=== PATIENT | male | born 1930 | race Caucasian/White ===

== ENCOUNTER 2017-12-09 09:07 | Outpatient (CLI) | payer MEDICARE ==
--- NOTE | 2017-12-09 12:27 | PET ---
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 Exam requ ested for initial staging. TECHNIQUE: PET scanning with CT attenuation correction was performed from the base of the brain through the prox imal thighs following the intravenous administration of 11 mCi F18-FDG in the right antecubital fossa . Imaging was performed after an uptake interval of 51 minutes. COMPARISON: None. CORRELATION: None. FINDINGS: Multiple areas of marimar hypermetabolism are seen, including the left supraclavicular (SUV 6), mediast inum (SUV 7.4 in prevascular space), periaortic abdominal (SUV 3.7), left common iliac (SUV 3.5), and left external iliac (SUV 4.6) lymph nodes. There is a focus of increased FDG localization in the inferior aspect of the left thyroid gland with a SUV of 3.5. No hypermetabolic pulmonary lung nodules, liver, adrenal, or skeletal lesions are seen. The CT scan used for attenuation correction demonstrates no evidence of pleural effusions or ascites. There is physiologic activity in the GI and tracts. IMPRESSION: 1. 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 2. Hypermetabolic left thyroid nodule should be evaluated with thyroid ultrasound and biopsy if nece ssary. POS: MATT
== END 2017-12-09 09:08 | disposition home or self-care (01) ==
LOC: PET 09:07
PROVIDERS: ATTEND Radiology Radiation Oncology
DX: C67.9 Malignant neoplasm of bladder, unspecified (principal); C77.8 Secondary and unspecified malignant neoplasm of lymph nodes of multiple regions
CPT/HCPCS: 78815; A9552

== ENCOUNTER 2018-03-02 12:54 | Outpatient (CLI) | payer MEDICARE ==
--- NOTE | 2018-03-03 11:20 | PET ---
RADIONUCLIDE PET SCAN WITH CT ATTENUATION CORRECTION IMAGING: Date: 03/02/18 HISTORY: Urinary bladder cancer with metastatic disease. COMPARISON: 12/09/17. FINDINGS: Physiologic uptake of radiotracer is present throughout the enteric system and along each urinary tra ct. Focal areas of uptake involving the left forearm are related to injection. Previously demonstrated areas of hypermetabolic activity associated with lymph nodes throughout the t orso and retroperitoneum are not apparent on today's exam. No hypermetabolic adenopathy is visible. Uptake at the inferior pole left thyroid lobe now shows a maximum SUV of 2.7 (previously 3.5). No new areas of hypermetabolic activity are apparent. Nondiagnostic CT attenuation correction images show prominent calcification throughout the arterial s tructures. There are degenerative changes of the lumbar spine. Girard catheter decompresses the bladde r. There is fusiform ectasia of the lower abdominal aorta. Diverticula arise from the colon. IMPRESSION: 1. Complete response with interval resolution of hypermetabolic lymph nodes. No new abnormalities ar e apparent. 2. Slight interval decrease in intensity of activity associated with the inferior pole of left thyro id lobe. POS: SANDOVAL
== END 2018-03-02 12:55 | disposition home or self-care (01) ==
LOC: PET 12:54
PROVIDERS: ATTEND Internal Medicine Medical Oncology
DX: C67.9 Malignant neoplasm of bladder, unspecified (principal); E07.89 Other specified disorders of thyroid
CPT/HCPCS: 78815; A9552

== ENCOUNTER 2018-06-08 08:00 | Outpatient (CLI) | payer MEDICARE ==
--- NOTE | 2018-06-08 11:16 | PET ---
RADIONUCLIDE PET SCAN WITH CT ATTENUATION CORRECTION: HISTORY: Urinary bladder cancer. Restaging. COMPARISON: 03/02/2018 and 06/08/2018 FINDINGS: Physiologic uptake of radiotracer is present throughout the enteric system and along each urinary tra ct. No abnormal uptake is associated with supraclavicular lymph nodes in the area of abnormality on prior exams. Uptake at the inferior pole, left thyroid lobe, now shows a maximum SUV of 3.2 (previously 2.7). Nondiagnostic CT attenuation correction images again show prominent calcification throughout the naila rial structures. Projecting inferiorly from the thyroid isthmus, a peripherally calcified lesion is 2.6 cm in greatest diameter and is more inferior and midline than the area of increased uptake on the PET scan. IMPRESSION: 1. No evidence of metastatic disease or new abnormalities. 2. Uptake associated with inferior pole, left thyroid lobe, has increased slightly, to a maximum sta ndardized uptake value of 3.2. Please consider thyroid sonogram to evaluate for potential lesion at the inferior pole, left thyroid lobe. On PET scan, it appears separate from the peripherally calcifi ed lesion at the inferior margin of the thymus, which is not hypermetabolic. POS: MATT
== END 2018-06-08 08:01 | disposition home or self-care (01) ==
LOC: PET 08:00
PROVIDERS: ATTEND Internal Medicine Hematology & Oncology
DX: C67.9 Malignant neoplasm of bladder, unspecified (principal); E32.9 Disease of thymus, unspecified; R94.6 Abnormal results of thyroid function studies
CPT/HCPCS: 78815; A9552

== ENCOUNTER 2018-10-12 07:27 | Outpatient (CLI) | payer MEDICARE ==
--- NOTE | 2018-10-12 12:00 | PET ---
NUCLEAR MEDICINE FDG PET CT: (Positron Emission Tomography) DATE: 10/12/18 HISTORY: 88-year-old male with bladder cancer C67.5 restaging. COMPARISON: 06/08/18. TECHNIQUE: IV injection F-18 Fluorodeoxyglucose (FDG) dose: 11.9 mCi PET and attenuation-correction CT performed from skull base to proximal thighs. FINDINGS: SUV (standard uptake value) numbers given are QCLR maximum SUV's: The previously mentioned focus of increased uptake at the lower pole of the left lobe of the thyroid gland with previous SUV of 3.2, now has SUV of 4.5. This is not to be confused from the separate midl ine, round, approximately 2.5 cm, rim-calcified benign, nonhypermetabolic nodule in the upper mediast inum directly posterior to the manubrium of the sternum. No abnormally hypermetabolic lesions are katelynn ntified in the chest or abdomen. In the pelvis, there is very high uptake in the urine contents of th e urinary bladder, with blooming which would completely overwhelm any tumor activity in the urinary b ladder that may be present. This is similar to the previous study. No evidence of iliac chain lymphad enopathy. IMPRESSION: 1. No evidence of metastatic disease. 2. In general, the urinary bladder cannot be evaluated for residual or recurrent neoplasm on PET sca n. 3. Hypermetabolic nodule at the lower pole of the left lobe of the thyroid gland, slightly more hype rmetabolic than previously. This is nonspecific. DEJAN Martell POS: MATT
== END 2018-10-12 07:28 | disposition home or self-care (01) ==
LOC: PET 07:27
PROVIDERS: ATTEND Internal Medicine Hematology & Oncology
DX: C67.9 Malignant neoplasm of bladder, unspecified (principal); E04.1 Nontoxic single thyroid nodule
CPT/HCPCS: 78815; A9552

== ENCOUNTER 2019-04-13 07:30 | Outpatient (CLI) | payer MEDICARE ==
--- NOTE | 2019-04-13 14:13 | PET ---
PET CT SKULL TO MID THIGH: COMPARISON: Most recent PET CT from 10/12/2018 is referenced for comparison purposes. HISTORY: Bladder malignancy. TECHNIQUE: A PET CT was performed from the skull to the mid thigh, after the administration of 13 millicuries of F18 FDG. Evaluation was performed on a [employer] workstation. FINDINGS: NECK: Redemonstration of mildly increased metabolic activity localizing to the lower pole left thyro id lobe, currently 3.2 SUV, which has reduced from comparison exam. Peripherally calcified inferior thyroid lesion by CT imaging is redemonstrated and does appear separate from the metabolic a ctivity. CHEST: No areas of hypermetabolic activity ABDOMEN/PELVIS: No new hypermetabolic lesion. There is wall thickening of the urinary bladder, and extensive urinary artifact within the urinary bladder does limit evaluation otherwise. SKELETON: No areas of hypermetabolic activity. CT images used for attenuation correction show no significant interval detrimental change by noncontr ast CT appearance. IMPRESSION: 1. No evidence of new hypermetabolic disease. 2. Interval reduction in SUV of activity localizing to the lower pole left thyroid lobe. 3. Otherwise grossly stable exam. Transcribed Date/Time: 04/13/2019 2:19 PM
== END 2019-04-13 07:31 | disposition home or self-care (01) ==
LOC: PET 07:30
PROVIDERS: ATTEND Internal Medicine Hematology & Oncology
DX: C67.9 Malignant neoplasm of bladder, unspecified (principal)
CPT/HCPCS: 78815; A9552

== ENCOUNTER 2019-10-12 07:24 | Outpatient (CLI) | payer MEDICARE ==
--- NOTE | 2019-10-12 11:35 | PET ---
PET CT: HISTORY: An 89-year-old male with bladder cancer. Last chemotherapy on 05/25/2018. Exam was requested for rest aging. COMPARISON: PET CT of 04/13/2019 TECHNIQUE: PET scanning with CT attenuation correction was performed from the base of the brain through the prox imal thighs following the intravenous administration of 13 millicuries of F18 fluorodeoxyglucose in t he right antecubital fossa. FINDINGS: Focally increased uptake in the lower pole of the left thyroid lobe is again seen with an SUV of 4.4 (previously 3.2). No marimar hypermetabolism is seen in the neck, chest, axillae, abdomen or pelvis. No hypermetabolic pu lmonary nodules or liver, adrenal or skeletal lesions are seen. There is physiologic activity in the GI and tracts and in the visualized portions of the brain. CT scan used for attenuation correction demonstrates no evidence of pleural effusions or ascites. IMPRESSION: 1. No evidence of metastatic disease. 2. Hypermetabolic thyroid lesion should be evaluated with ultrasound. POS: MATT
== END 2019-10-12 07:25 | disposition home or self-care (01) ==
LOC: PET 07:24
PROVIDERS: ATTEND Internal Medicine Hematology & Oncology
DX: C67.9 Malignant neoplasm of bladder, unspecified (principal); E07.89 Other specified disorders of thyroid
CPT/HCPCS: 78815; A9552

== ENCOUNTER 2020-08-14 07:29 | Outpatient (CLI) | payer MEDICARE ==
--- NOTE | 2020-08-14 09:16 | PET ---
EXAM: PET/CT HISTORY: Malignant neoplasm of the bladder neck; restaging evaluation TECHNIQUE: PET scanning with CT attenuation correction was performed from the base of the brain to the proximal thighs following the intravenous administration of 11.6 millicuries [id number]. COMPARISON: Prior PET/CT dated October 12, 2019. FINDINGS: Biodistribution:The biodistribution for the exam appears acceptable. Head and neck: There is appropriate background activity within the brain. No hypermetabolic lymphaden opathy or masses identified. Thorax: No hypermetabolic pulmonary lesion, pleural effusion or lymphadenopathy is present. Abdomen and pelvis: There is expected background activity within the GI and systems. No hypermetab olic mass, lymphadenopathy or ascites is present. Osseous structures and skin: No hypermetabolic skin or osseous lesion is identified. IMPRESSION: Normal PET scan. No evidence to suggest recurrent malignancy or metastatic disease.
== END 2020-08-14 07:30 | disposition home or self-care (01) ==
LOC: PET 07:29
PROVIDERS: ATTEND Internal Medicine Hematology & Oncology
DX: C67.5 Malignant neoplasm of bladder neck (principal)
CPT/HCPCS: 78815; A9552

== ENCOUNTER 2021-09-01 07:35 | Outpatient (CLI) | payer MEDICARE | END 2021-09-01 07:36 | disposition home or self-care (01) | LOC: PET 07:35 | PROVIDERS: ATTEND Internal Medicine Hematology & Oncology | DX: C67.5 Malignant neoplasm of bladder neck (principal); N32.89 Other specified disorders of bladder | CPT/HCPCS: 78815; A9552 ==